=== PATIENT | male | born 1970 ===

== ENCOUNTER 2017-07-03 09:33 | Emergency (ER) | payer SELFPAY ==
[2017-07-03 09:55] VITALS: BMI 23.0
[2017-07-03 10:03] VITALS: RESP 20; O2SAT 98
--- NOTE | 2017-07-03 10:39 | C.PDOC ---
History Of Present Illness 47 y/o male presents to ED with complaints of left sided neck pain and pain when swallowing for 5 days. Patient reports mild cough and denies fever, chills , voice changes or neck stiffness. Time Seen by Provider: 07/03/17 10:13 Chief Complaint (Nursing): ENT Problem History Per: Patient History/Exam Limitations: None Onset/Duration Of Symptoms: Days Current Symptoms Are (Timing): Still Present Past Medical History Reviewed: Historical Data, Nursing Documentation, Vital Signs Vital Signs: Last Vital Signs Temp 98.6 F 07/03/17 12:10 Pulse 86 07/03/17 12:10 Resp 20 07/03/17 12:10 BP 122/75 07/03/17 12:10 Pulse Ox 98 07/03/17 12:10 - Medical History PMH: No Chronic Diseases Surgical History: No Surg Hx Family History: States: No Known Family Hx - Social History Hx Alcohol Use: No Hx Substance Use: No - Immunization History Hx Tetanus Toxoid Vaccination: No Hx Influenza Vaccination: No Hx Pneumococcal Vaccination: No Review Of Systems Constitutional: Negative for: Fever, Chills ENT: Positive for: Throat Pain Respiratory: Positive for: Cough. Negative for: Shortness of Breath Gastrointestinal: Negative for: Nausea, Vomiting Musculoskeletal: Positive for: Neck Pain Skin: Negative for: Rash Physical Exam - Physical Exam Appears: Non-toxic, No Acute Distress Skin: Warm, Dry, No Rash Head: Atraumatic, Normacephalic Eye(s): bilateral: Normal Inspection Ear(s): Bilateral: Normal Oral Mucosa: Moist Throat: Erythema (Left tonsil), No Exudate, Other (Left tonsil enlargement. Uvula at midline) Neck: Normal ROM, Supple Lymphatic: Other (Left anterior cervical lymph node swelling) Cardiovascular: Rhythm Regular, No Murmur Respiratory: Normal Breath Sounds, No Rales, No Rhonchi, No Wheezing Gastrointestinal/Abdominal: Soft, No Tenderness, No Guarding, No Rebound Neurological/Psych: Oriented x3, Normal Speech ED Course And Treatment O2 Sat by Pulse Oximetry: 98 (RA) Pulse Ox Interpretation: Normal Medical Decision Making Medical Decision Making: Impression: Tonsillitis Plan: Rapid Strep Progress: Strep was negative Re-Eval: Patient remained afebrile and in no distress. he has no intraoral swelling, difficulty swallowing or speaking. Amoxicillin PO given. Patient stable for discharge and to be discharged with Rx and instructed to follow up Disposition Counseled Patient/Family Regarding: Diagnosis, Need For Followup, Rx Given - Disposition Referrals: [facility] [Outside] [facility] [Outside] Disposition: HOME/ ROUTINE Disposition Time: 11:23 Condition: STABLE Additional Instructions: Take antibiotic twice daily. Tylenol or Motrin alternating every 4-6 hours for Fever 100.4F or higher. Rest and drink plenty of fluids to prevent dehydration. Try vanilla ice cream to improve eating/drinking, this is cold soothing and tastes good. May also try lozenges or cepacol spray over the counter. 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 - Scribe Statement The provider has reviewed the documentation as recorded by the Scribángel Quarles All medical record entries made by the Kenan were at my direction and personally dictated by me. I have reviewed the chart and agree that the record accurately reflects my personal performance of the history, physical exam, medical decision making, and the department course for this patient. I have also personally directed, reviewed, and agree with the discharge instructions and disposition.
[2017-07-03 12:13] VITALS: BP 122/75; PULSE 86; TEMP 98.6
== END 2017-07-03 12:13 | disposition home or self-care (01) ==
LOC: C.ER 09:33
DX: J02.9 Acute pharyngitis, unspecified (principal)